=== PATIENT | male | born 1940 | race Asian ===

== ENCOUNTER 2017-12-08 09:41 | Day surgery (SDC) | payer MEDICARE ==
[2017-12-07 10:47] LABS: BASOPHILS % (AUTO) 0.4 % (0-1); EOSINOPHILS # (AUTO) 0.2 X10'3 (0-0.9); EOSINOPHILS % (AUTO) 2.7 % (0-6); HEMATOCRIT 42.6 % (42.0-52.0); HEMOGLOBIN 14.9 g/dl (14.0-17.9); LYMPHOCYTES # (AUTO) 1.2 X10'3 (1.1-4.8); LYMPHOCYTES % (AUTO) 14.6 % (21-51); MEAN CORPUSCULAR HEMOGLOBIN 33.4 PG (27.0-31.0); MEAN CORPUSCULAR VOLUME 95.3 FL (78-98); MEAN PLATELET VOLUME 6.7 FL (7.4-10.4); MONOCYTES # (AUTO) 0.4 X10'3 (0-0.9); MONOCYTES % (AUTO) 5.3 % (2-12); NEUTROPHILS # (AUTO) 6.3 X10'3 (1.8-7.7); PLATELET COUNT 178 X10'3 (140-440); RED BLOOD COUNT 4.47 X10'6 (4.70-6.10); RED CELL DISTRIBUTION WIDTH 14.1 % (11.5-14.5); WHITE BLOOD COUNT 8.1 X10'3 (4.5-11.0)
[2017-12-07 10:58] LABS: PARTIAL THROMBOPLASTIN TIME 24 SECONDS (22-32); PROTHROMBIN TIME 10.3 SECONDS (9.0-12.0)
[2017-12-07 10:59] LABS: GLUCOSE 120 MG/DL (70-104); POTASSIUM 4.1 MMOL/L (3.5-5.1); SODIUM 143 MMOL/L (135-145)
[2017-12-07 11:00] LABS: ALBUMIN 3.9 G/DL (3.4-5.0); ANION GAP 10 (8-16); BLOOD UREA NITROGEN 10 MG/DL (7-18); BUN/CREATININE RATIO 8.1 (5.4-32.0); CALCIUM 8.1 MG/DL (8.5-10.1); CHLORIDE 106 MMOL/L (99-107); CREATININE 1.24 MG/DL (0.60-1.10); TOTAL CARBON DIOXIDE 27.4 MMOL/L (24-32); eGFR 57 ML/MIN
[2017-12-08] VITALS (21 sets, daily range): BP systolic 121–178; BP diastolic 53–84
[~2017-12-08] VITALS: Ht 165.1 cm; Wt 74.5 kg
[~2017-12-08 09:41] MED LIST: ALLO300T8 PO; ASPI-1053 PO; ATOR10TA87 PO; CALC-793 PO; CLOP75TA35 PO; GLUC-221; INDO50CA PO; LISI10TA4 PO; METO50TA17 PO; OMEG1CAP2
[2017-12-08] MEDS ORDERED: sod bicarbonate 150mEq in D5W 1,150 ML IV ONE (10:00)
[2017-12-08] MEDS ORDERED: diphenhydrAMINE 25mg capsule PO PRN (10:05)
[2017-12-08] MEDS ORDERED: LORazepam 0.5 MG tablet PO PRN (10:05)
[2017-12-08] MEDS ORDERED: acetylcysteine 200 MG/ml 4ml vial PO PRN (10:05)
[2017-12-08] MEDS ORDERED: CLOP75TA35 PO (11:05)
[2017-12-08] MEDS ORDERED: vitamin D PO (11:09)
[2017-12-08] MEDS ORDERED: OMEG1CAP13 PO (11:11)
[2017-12-08] MEDS: normal saline 1000ml 1,000 ML IV SCH ×2 (14:30→23:44)
[2017-12-08] MEDS ORDERED: LIDOcaine 1% 30ml preserv. free vial ONE (14:50)
[2017-12-08] MEDS ORDERED: nitroGLYCERIN-Tridil 50MG/D5W 250 ML IV ONE (14:50)
[2017-12-08] MEDS ORDERED: iohexol 350MG/ML 100ml bottle IV ONE ×3 (14:50→16:38)
[2017-12-08] MEDS ORDERED: iohexol 350 MG/ML 50ML vial IV ONE (14:50)
[2017-12-08] MEDS ORDERED: heparin 1,000unit/ml 10ml vial 10 ML ONE (14:50)
[2017-12-08] MEDS ORDERED: midazolam 2 mg/2 ml injection ONE (15:12)
[2017-12-08] MEDS ORDERED: fentaNYL/PF 50MCG/1 ML 2ML syringe ONE (15:12)
[2017-12-08] MEDS ORDERED: tirofiban 5mg in NS 100mL 100 ML IV ONE (16:54)
[2017-12-08] MEDS ORDERED: clopidogrel 300mg tablet ONE (17:09)
[2017-12-08] MEDS ORDERED: tirofiban 5mg in NS 100mL 100 ML IV SCH (17:50)
[2017-12-08] MEDS ORDERED: cyclobenzaprine 10mg tablet PO PRN (18:00)
[2017-12-08] MEDS ORDERED: HYDROcodone/acetaminophen 10/325mg tab PO PRN ×2 (18:00)
[2017-12-08] MEDS ORDERED: OXAZEpam 15mg capsule PO PRN (18:00)
[2017-12-08] MEDS ORDERED: proCHLORperazine 10 MG/2 ml inj IV PRN (18:00)
[2017-12-08] MEDS ORDERED: aspirin 81mg tab.chew PO ONE (18:00)
[2017-12-08] MEDS ORDERED: acetaminophen 325mg tablet PO PRN (18:00)
[2017-12-08] MEDS ORDERED: magnesium hydroxide 30ml (MOM) UD suspension PO SCH (21:00)
[2017-12-08] MEDS: metoprolol tartrate 25mg tablet PO SCH (23:40)
[2017-12-08] MEDS: lisinopril 10 MG tablet PO SCH (23:41)
[2017-12-08] MEDS: docusate sod 100mg capsule PO SCH (23:42)
[2017-12-09] VITALS (7 sets, daily range): BP systolic 115–140; BP diastolic 53–77
[2017-12-09] MEDS: normal saline 1000ml 1,000 ML IV SCH (02:54)
[2017-12-09 05:43] LABS: BASOPHILS % (AUTO) 0.1 % (0-1); EOSINOPHILS # (AUTO) 0.1 X10'3 (0-0.9); EOSINOPHILS % (AUTO) 0.8 % (0-6); HEMATOCRIT 37.1 % (42.0-52.0); HEMOGLOBIN 12.9 g/dl (14.0-17.9); LYMPHOCYTES # (AUTO) 0.9 X10'3 (1.1-4.8); LYMPHOCYTES % (AUTO) 8.1 % (21-51); MEAN CORPUSCULAR HEMOGLOBIN 32.7 PG (27.0-31.0); MEAN CORPUSCULAR HGB CONC 34.8 % (33.0-36.5); MEAN CORPUSCULAR VOLUME 93.9 FL (78-98); MEAN PLATELET VOLUME 7.1 FL (7.4-10.4); MONOCYTES # (AUTO) 0.6 X10'3 (0-0.9); MONOCYTES % (AUTO) 5.3 % (2-12); NEUTROPHILS # (AUTO) 9.6 X10'3 (1.8-7.7); NEUTROPHILS % (AUTO) 85.7 % (42-75); PLATELET COUNT 145 X10'3 (140-440); RED BLOOD COUNT 3.95 X10'6 (4.70-6.10); RED CELL DISTRIBUTION WIDTH 13.8 % (11.5-14.5); WHITE BLOOD COUNT 11.2 X10'3 (4.5-11.0)
[2017-12-09 05:52] LABS: ALBUMIN 3.2 G/DL (3.4-5.0); ANION GAP 7 (8-16); BLOOD UREA NITROGEN 11 MG/DL (7-18); BUN/CREATININE RATIO 9.9 (5.4-32.0); CALCIUM 8.2 MG/DL (8.5-10.1); CHLORIDE 105 MMOL/L (99-107); CREATININE 1.11 MG/DL (0.60-1.10); GLUCOSE 120 MG/DL (70-104); SODIUM 142 MMOL/L (135-145); TOTAL CARBON DIOXIDE 30.2 MMOL/L (24-32); eGFR 64 ML/MIN
[2017-12-09] MEDS ORDERED: clopidogrel 75mg tablet PO SCH (08:00)
[2017-12-09] MEDS ORDERED: atorvastatin 20mg tablet PO SCH (08:00)
[2017-12-09] MEDS ORDERED: vitamin D (cholecalciferol) 1,000 unit tablet PO SCH (08:00)
[2017-12-09] MEDS ORDERED: ATOR40TA PO (08:08)
[2017-12-09] MEDS ORDERED: ASPI-1 PO (08:08)
[2017-12-09] MEDS: lisinopril 10 MG tablet PO SCH (08:26)
[2017-12-09] MEDS: metoprolol tartrate 25mg tablet PO SCH (08:26)
[2017-12-09] MEDS: docusate sod 100mg capsule PO SCH (08:27)
[2017-12-09] MEDS ORDERED: aspirin 325mg tablet PO SCH (08:30)
[2017-12-09] MEDS ORDERED: allopurinol 300 MG tablet PO SCH (08:30)
[2017-12-09] MEDS ORDERED: [UNRECOGNIZED DRUG - REMARK] PO NR (10:00)
== END 2017-12-09 12:09 | disposition home or self-care (01) ==
LOC: SSTAY O 09:41 → PCU 3S 20:05 → SSTAY O 12-09 12:09
PROVIDERS: ATTEND Internal Medicine Cardiovascular Disease
DX: I25.119 Atherosclerotic heart disease of native coronary artery with unspecified angina pectoris (principal); I10 Essential (primary) hypertension; E78.5 Hyperlipidemia, unspecified; J45.909 Unspecified asthma, uncomplicated; M19.90 Unspecified osteoarthritis, unspecified site; G47.33 Obstructive sleep apnea (adult) (pediatric); E66.9 Obesity, unspecified; Z90.49 Acquired absence of other specified parts of digestive tract; Z79.01 Long term (current) use of anticoagulants; Z79.82 Long term (current) use of aspirin; Z95.5 Presence of coronary angioplasty implant and graft; Z86.74 Personal history of sudden cardiac arrest; Z87.891 Personal history of nicotine dependence; Z90.89 Acquired absence of other organs; Z68.27 Body mass index [BMI] 27.0-27.9, adult; Z98.890 Other specified postprocedural states; Z79.899 Other long term (current) drug therapy
CPT/HCPCS: 36415; 80048; 85025; 85347; 85610; 85730; 93005; 93458; 99152; 99153; A6257; A6449; C1725; C1760; C1769; C1874; C1894; C9600; J1644; J2250; J3010; J3246; J3490; J7030; Q0163; Q9967; A4620

== ENCOUNTER 2019-08-02 09:41 | Day surgery (SDC) | payer MEDICARE ==
[2019-08-01 12:20] LABS: ALBUMIN 4.3 G/DL (3.4-5.0); ANION GAP 7 (8-16); BLOOD UREA NITROGEN 18 MG/DL (7-18); BUN/CREATININE RATIO 14.9 (5.4-32.0); CHLORIDE 104 MMOL/L (99-107); CREATININE 1.21 MG/DL (0.60-1.10); GLUCOSE 189 MG/DL (70-104); POTASSIUM 4.3 MMOL/L (3.5-5.1); SODIUM 142 MMOL/L (135-145); TOTAL CARBON DIOXIDE 31.4 MMOL/L (24-32); eGFR 58 ML/MIN
[2019-08-01 12:24] LABS: PARTIAL THROMBOPLASTIN TIME 26 SECONDS (22-32)
[2019-08-01 12:28] LABS: BASOPHILS % (AUTO) 0.4 % (0-1); EOSINOPHILS # (AUTO) 0.1 X10'3 (0-0.9); EOSINOPHILS % (AUTO) 1.2 % (0-6); HEMATOCRIT 43.4 % (42.0-52.0); HEMOGLOBIN 15.3 g/dl (14.0-17.9); LYMPHOCYTES % (AUTO) 18.2 % (21-51); MEAN CORPUSCULAR HEMOGLOBIN 32.4 PG (27.0-31.0); MEAN CORPUSCULAR HGB CONC 35.1 g/dL (33.0-36.5); MEAN CORPUSCULAR VOLUME 92.2 FL (78-98); MEAN PLATELET VOLUME 7.3 FL (7.4-10.4); MONOCYTES # (AUTO) 0.4 X10'3 (0-0.9); MONOCYTES % (AUTO) 6.8 % (2-12); NEUTROPHILS % (AUTO) 73.4 % (42-75); PLATELET COUNT 162 X10'3 (140-440); RED BLOOD COUNT 4.71 X10'6 (4.70-6.10); RED CELL DISTRIBUTION WIDTH 14.3 % (11.5-14.5); WHITE BLOOD COUNT 5.5 X10'3 (4.5-11.0)
[2019-08-02] VITALS (13 sets, daily range): BP systolic 125–154; BP diastolic 62–95
[~2019-08-02] VITALS: Ht 165.1 cm; Wt 75.6 kg
[~2019-08-02 09:41] MED LIST changes: +ASPI-1 PO; -ASPI-1053 PO; -ATOR10TA87 PO; +ATOR40TA PO; -CALC-793 PO; -INDO50CA PO; +vitamin D PO
[2019-08-02] MEDS ORDERED: diphenhydrAMINE 25mg capsule PO PRN (09:55)
[2019-08-02] MEDS ORDERED: normal saline 1,000 ML IV SCH (09:55)
[2019-08-02] MEDS ORDERED: LORazepam 0.5 MG tablet PO PRN (09:55)
[2019-08-02] MEDS ORDERED: ASPI-974 PO (10:07)
[2019-08-02] MEDS ORDERED: ATOR40TA PO (10:07)
[2019-08-02] MEDS ORDERED: LIDOcaine/PRILOcaine 5gm cream TP ONE (10:20)
[2019-08-02] MEDS ORDERED: midazolam 2 mg/2 ml injection ONE (12:58)
[2019-08-02] MEDS ORDERED: fentaNYL/PF 50MCG/1 ML 2ML syringe ONE (12:58)
[2019-08-02] MEDS ORDERED: nitroGLYCERIN-Tridil 50MG/D5W 250 ML IV ONE (12:58)
[2019-08-02] MEDS ORDERED: heparin 1,000unit/ml 10ml vial 10 ML ONE (12:59)
[2019-08-02] MEDS ORDERED: iohexol 350MG/ML 100ml bottle IV ONE (12:59)
[2019-08-02] MEDS ORDERED: iohexol 350 MG/ML 50ML vial IV ONE (12:59)
[2019-08-02] MEDS ORDERED: LIDOcaine 1% (10mg/ml)w/preservative injection 20ml MDV ONE (12:59)
[2019-08-02] MEDS ORDERED: verapamil 2.5 mg/ml inj IV ONE (13:05)
== END 2019-08-02 19:00 | disposition home or self-care (01) ==
LOC: SSTAY O 09:41
PROVIDERS: ATTEND Internal Medicine Cardiovascular Disease
DX: R94.39 Abnormal result of other cardiovascular function study (principal); I25.10 Atherosclerotic heart disease of native coronary artery without angina pectoris; I10 Essential (primary) hypertension; E78.5 Hyperlipidemia, unspecified; G47.33 Obstructive sleep apnea (adult) (pediatric); Z79.899 Other long term (current) drug therapy; Z79.82 Long term (current) use of aspirin; Z79.01 Long term (current) use of anticoagulants; Z98.890 Other specified postprocedural states; Z87.891 Personal history of nicotine dependence; Z95.5 Presence of coronary angioplasty implant and graft
CPT/HCPCS: 36415; 80048; 85025; 85610; 85730; 93005; 93458; 99152; 99153; C1769; C1894; J1644; J2001; J2250; J3010; J7030; Q0163; Q9967; A4620; A5120; J3490

== ENCOUNTER 2022-07-03 11:49 | Inpatient (IN) | payer BC, MEDICARE ==
[~2022-07-03] VITALS: Ht 165.1 cm; Wt 70.0 kg
[~2022-07-03 11:49] MED LIST changes: -ASPI-1 PO; +ASPI-974 PO; +CLOP75TA34 PO; -CLOP75TA35 PO; -GLUC-221; +LISI10TA27 PO; -LISI10TA4 PO
[2022-07-03] MEDS ORDERED: diltiazem 5mg/ml 5ml inj. IV ONE (12:20)
[2022-07-03] MEDS ORDERED: normal saline 1000ML IV soln IVB ONE (12:20)
[2022-07-03 12:42] LABS: BASOPHILS % (AUTO) 0.1 % (0-1); EOSINOPHILS % (AUTO) 0 % (0-6); HEMATOCRIT 40.3 % (42.0-52.0); HEMOGLOBIN 13.4 g/dl (14.0-17.9); LYMPHOCYTES # (AUTO) 0.3 X10'3 (1.1-4.8); LYMPHOCYTES % (AUTO) 2.6 % (21-51); MEAN CORPUSCULAR HEMOGLOBIN 31.9 PG (27.0-31.0); MEAN CORPUSCULAR HGB CONC 33.3 g/dL (33.0-36.5); MEAN CORPUSCULAR VOLUME 95.9 FL (78-98); MEAN PLATELET VOLUME 7.3 FL (7.4-10.4); MONOCYTES # (AUTO) 1.3 X10'3 (0-0.9); MONOCYTES % (AUTO) 10.9 % (2-12); NEUTROPHILS # (AUTO) 10.2 X10'3 (1.8-7.7); NEUTROPHILS % (AUTO) 86.4 % (42-75); PLATELET COUNT 138 X10'3 (140-440); RED BLOOD COUNT 4.21 X10'6 (4.70-6.10); WHITE BLOOD COUNT 11.7 X10'3 (4.5-11.0)
[2022-07-03 12:54] LABS: CLARITY,URINE CLOUDY (Clear); COLOR,URINE BROWN (Yellow); GLUCOSE, URINE NEGATIVE (Neg); KETONES,URINE TRACE mg/dl (Neg); LEUKOCYTE ESTERASE ,URINE NEGATIVE (Neg); NITRITES, URINE POSITIVE (Neg); OCCULT BLOOD,URINE LARGE (Neg); PH,URINE 5.5 (4.8-8.0); PROTEIN,URINE >=300 mg/dl (Neg)
[2022-07-03 12:59] LABS: UA COLLECTION TYPE FOLEY CATH
[2022-07-03 13:00] LABS: WBC,URINE 30-50 /HPF (0-4)
[2022-07-03 13:00] LABS: ALANINE AMINOTRANSFERASE 58 U/L (12-78); ALBUMIN 3.5 G/DL (3.4-5.0); ALBUMIN/GLOBULIN RATIO 1.1 (1.1-1.5); ALKALINE PHOSPHATASE 61 IU/L (46-116); ANION GAP 11 (8-16); ASPARTATE AMINO TRANSFERASE 180 U/L (10-37); BILIRUBIN,TOTAL 1.9 MG/DL (0.1-1.0); BLOOD UREA NITROGEN 23 MG/DL (7-18); BUN/CREATININE RATIO 10.6 (5.4-32.0); CALCIUM 7.9 MG/DL (8.5-10.1); CHLORIDE 102 MMOL/L (99-107); CREATININE 2.18 MG/DL (0.60-1.10); GLUCOSE 142 MG/DL (70-104); MAGNESIUM 1.9 MG/DL (1.5-2.4); POTASSIUM 4.8 MMOL/L (3.5-5.1); SODIUM 136 MMOL/L (135-145); TOTAL PROTEIN 6.8 G/DL (6.4-8.2); eGFR 29 ML/MIN
[2022-07-03 13:01] LABS: BACTERIA,URINE 3+ /HPF (Neg); MUCUS STRANDS FEW /LPF (Neg); SQUAMOUS EPITHELIAL CELL,UR NONE SEEN /LPF (FEW)
[2022-07-03] MEDS ORDERED: diltiazem-NS 100mg/100ml 100 ML IV PRN (13:05)
[2022-07-03] MEDS ORDERED: aspirin 81mg tab.chew PO ONE (13:20)
[2022-07-03] MEDS ORDERED: nitroGLYCERIN 0.4mg/hour patch TD ONE (13:20)
[2022-07-03] MEDS ORDERED: azithromycin/NS 500mg/250ml 250 ML IV ONE (13:20)
[2022-07-03] MEDS ORDERED: CefTRIAXone/D5W-Rocephin 1gm 50 ML IV ONE (13:20)
--- NOTE | 2022-07-03 13:45 | NUR ---
MD Ramachandran at bedside. Verbal by MD Ramachandran to increase diltz drip up to 10mg/hr
[2022-07-03] MEDS ORDERED: acetaminophen 325mg tablet PO ONE ×2 (13:55→14:20)
[2022-07-03] MEDS ORDERED: amiodarone 150mg/dext, iso-os 100 ML IV ONE (14:15)
[2022-07-03] MEDS ORDERED: normal saline 1000ml 1,000 ML IV ONE (14:20)
[2022-07-03] MEDS ORDERED: heparin 10,000 units/1 ML INJ IV ONE ×2 (14:20→14:25)
[2022-07-03] MEDS ORDERED: metoprolol tartrate 1mg/ml inj IV SCH (14:30)
--- NOTE | 2022-07-03 14:40 | NUR ---
Per BAKERY ASSISTANT Shanique, hold lopressor, and only give bolus of amio
[2022-07-03] MEDS: amiodarone/D5 360MG/200ML BAG 200 ML IV SCH ×2 (15:03→20:19)
--- NOTE | 2022-07-03 15:24 | NUR ---
critical result troponin [id number] RN BJ notified
[2022-07-03] MEDS ORDERED: oseltamivir phos 75mg capsule PO SCH (15:30)
--- NOTE | 2022-07-03 15:30 | NUR ---
Per KEVIN lin
[2022-07-03] MEDS: heparin 25,000 UNIT/250ml bag 250 ML IV PRN (15:36)
[2022-07-03] MEDS ORDERED: digoxin 250mcg/ml 2ml ampule IV ONE ×2 (15:55→22:00)
[2022-07-03] MEDS ORDERED: acetaminophen 325mg tablet PO PRN ×2 (18:05)
[2022-07-03] MEDS ORDERED: potassium Cl 40MEQ/1/2NS 520ml 520 ML IV PRN (18:05)
[2022-07-03] MEDS ORDERED: HYDROcodone/acetaminophen 5mg/325mg tablet PO PRN (18:05)
[2022-07-03] MEDS: normal saline 1000ml 1,000 ML IV SCH (18:05)
[2022-07-03] MEDS ORDERED: acetaminophen 650mg rectal suppository RC PRN (18:05)
[2022-07-03] MEDS ORDERED: magnesium hydroxide 30ml (MOM) UD suspension PO PRN (18:05)
[2022-07-03] MEDS ORDERED: ondansetron/PF 4mg/2ml inj IV PRN (18:05)
[2022-07-03] MEDS ORDERED: bisacodyl 10mg suppository rectal RC PRN (18:05)
[2022-07-03] MEDS ORDERED: magnesium 4gm in 100ml NS 100 ML IV PRN (18:05)
[2022-07-03] MEDS ORDERED: potassium Cl 20 mEq SR tablet PO PRN ×2 (18:05)
[2022-07-03] MEDS ORDERED: morphine 2 MG/ML inj. syringe IV PRN ×2 (18:05)
[2022-07-03] MEDS ORDERED: mag hydrox/Alum hydrox/simeth 30ml oral suspension PO PRN (18:05)
[2022-07-03] MEDS ORDERED: HYDROcodone/acetaminophen 10/325mg tab PO PRN (18:05)
[2022-07-03] MEDS ORDERED: diphenhydrAMINE 25mg capsule PO PRN (18:05)
[2022-07-03] MEDS ORDERED: magnesium Cl slow-release 64mg tablet PO PRN (18:05)
[2022-07-03] MEDS ORDERED: PERFLUTREN PROTEIN-A MICROSPHR (Optison) 0.22 MG/ML 3ML VIAL IV ONE (18:05)
[2022-07-03 18:39] LABS: HEMOGLOBIN A1C 5.8 % (4.5-6.2)
[2022-07-03] MEDS: ipratropium/albuterol 3ml nebule NEB SCH (19:53)
[2022-07-03] MEDS: K and/or MAG REPLACEMENT MC SCH (20:00)
[2022-07-03] MEDS: docusate sod 100mg capsule PO SCH (20:00)
--- NOTE | 2022-07-03 21:01 | NUR ---
optison not administered in ER.
[2022-07-03 22:17] LABS: CREATINE KINASE 9321 U/L (39-308)
[2022-07-04] VITALS (10 sets, daily range): BP systolic 90–130; BP diastolic 55–83
[2022-07-04] MEDS: oseltamivir phos 75mg capsule PO SCH ×3 (01:03→20:26)
[2022-07-04] MEDS: ipratropium/albuterol 3ml nebule NEB PRN (01:15)
[2022-07-04] MEDS ORDERED: furosemide 10 MG/1 ML 10ml inj IV ONE (01:45)
[2022-07-04] MEDS ORDERED: metoprolol tartrate 1mg/ml inj IV ONE (01:45)
[2022-07-04] MEDS: amiodarone/D5 360MG/200ML BAG 200 ML IV SCH ×2 (02:23→13:55)
[2022-07-04 03:42] LABS: ABG HCO3 17.7 mmol/L (22.0-26.0); ABG OXYGEN SATURATION 96.2 % (94-97); ABG PO2 (T) 88.7 mmHg (75.0-100.0); ALLEN'S TEST POSITIVE; FCOHb 0.3 % (0.0-3.9); FMetHb 0.3 % (0.0-1.5); FO2Hb 95.6 % (94-97); PATIENT TEMPERATURE 38.1; TOTAL HEMOGLOBIN 12.9 G/dl (14.0-17.9)
[2022-07-04] MEDS: ipratropium/albuterol 3ml nebule NEB SCH ×4 (04:12→20:51)
[2022-07-04 05:34] LABS: APTT 29 SECONDS (22-32)
[2022-07-04] MEDS: heparin 10,000 units/1 ML INJ IV PRN ×2 (06:47→23:27)
--- NOTE | 2022-07-04 07:04 | NUR ---
REPORT FROM JENNIFER WELLINGTON FOR CONTINUATION OF CARE. PT IS AWAKE BIPAP IN PLACE. RESP EVEN UNLABORED. SKIN W/D/I PINK. IV HEAPRIN DOSAGE INCREASED BY JENNIFER WELLINGTON TO 1000UNITS/HR PER PROTOCAL.
--- NOTE | 2022-07-04 07:23 | NUR ---
MUNOZ IN PLACE APPROX 1500 ML URINE TAKEN FROM BAG
[2022-07-04] MEDS: K and/or MAG REPLACEMENT MC SCH ×2 (07:25→20:00)
[2022-07-04] MEDS: docusate sod 100mg capsule PO SCH ×2 (08:00→20:00)
[2022-07-04] MEDS: CefTRIAXone/D5W-Rocephin 1gm 50 ML IV SCH (08:08)
--- NOTE | 2022-07-04 09:03 | NUR ---
PT GIVEN TRAY SAT UP AND IS EATING WITH NO ISSUES. PT TAKEN OFF BIPAP. PT SPEAKING IN COMPLETE SENTENCES AND DENIES CP OR SOB.
[2022-07-04 09:34] LABS: BASOPHILS # (AUTO) 0.1 X10'3 (0-0.2); BASOPHILS % (AUTO) 1.2 % (0-1); EOSINOPHILS % (AUTO) 0.2 % (0-6); HEMATOCRIT 34.3 % (42.0-52.0); HEMOGLOBIN 11.2 g/dl (14.0-17.9); LYMPHOCYTES # (AUTO) 0.2 X10'3 (1.1-4.8); LYMPHOCYTES % (AUTO) 3.7 % (21-51); MEAN CORPUSCULAR HEMOGLOBIN 32.4 PG (27.0-31.0); MEAN CORPUSCULAR HGB CONC 32.8 g/dL (33.0-36.5); MEAN CORPUSCULAR VOLUME 98.9 FL (78-98); MEAN PLATELET VOLUME 7.9 FL (7.4-10.4); MONOCYTES # (AUTO) 0.7 X10'3 (0-0.9); MONOCYTES % (AUTO) 11.3 % (2-12); NEUTROPHILS # (AUTO) 5.2 X10'3 (1.8-7.7); NEUTROPHILS % (AUTO) 83.6 % (42-75); PLATELET COUNT 120 X10'3 (140-440); RED BLOOD COUNT 3.47 X10'6 (4.70-6.10); RED CELL DISTRIBUTION WIDTH 14.2 % (11.5-14.5); WHITE BLOOD COUNT 6.2 X10'3 (4.5-11.0)
[2022-07-04 10:37] LABS: ALANINE AMINOTRANSFERASE 106 U/L (12-78); ALBUMIN/GLOBULIN RATIO 0.9 (1.1-1.5); ALKALINE PHOSPHATASE 45 IU/L (46-116); ANION GAP 11 (8-16); ASPARTATE AMINO TRANSFERASE 302 U/L (10-37); BILIRUBIN,TOTAL 1.1 MG/DL (0.1-1.0); BLOOD UREA NITROGEN 25 MG/DL (7-18); BUN/CREATININE RATIO 14.6 (5.4-32.0); CALCIUM 7.4 MG/DL (8.5-10.1); CHLORIDE 103 MMOL/L (99-107); CREATININE 1.71 MG/DL (0.60-1.10); GLUCOSE 186 MG/DL (70-104); POTASSIUM 3.8 MMOL/L (3.5-5.1); SODIUM 135 MMOL/L (135-145); TOTAL CARBON DIOXIDE 21.1 MMOL/L (24-32); TOTAL PROTEIN 6.3 G/DL (6.4-8.2); eGFR 39 ML/MIN
[2022-07-04 11:04] LABS: CHOL/HDL RATIO 2.7 (0.00-4.99); CHOLESTEROL 95 MG/DL (0-200); HDL CHOLESTEROL 35 MG/DL (35-60); LDL CHOLESTEROL 48 MG/DL (50-100); MAGNESIUM 1.7 MG/DL (1.5-2.4); PHOSPHORUS 2.7 MG/DL (2.3-4.5); TRIGLYCERIDES 75 MG/DL (20-135)
[2022-07-04] MEDS ORDERED: digoxin 250mcg/ml 2ml ampule IV ONE (11:20)
[2022-07-04] MEDS ORDERED: amiodarone 150mg/dext, iso-os 100 ML IV ONE (11:20)
[2022-07-04] MEDS: normal saline 1000ml 1,000 ML IV SCH ×2 (11:59→20:45)
[2022-07-04] MEDS: atorvastatin 20mg tablet PO SCH (12:03)
[2022-07-04] MEDS: metoprolol tartrate 25mg tablet PO SCH ×2 (12:03→20:24)
[2022-07-04] MEDS: clopidogrel 75mg tablet PO SCH (12:03)
[2022-07-04 13:28] LABS: APTT 96 SECONDS (22-32)
[2022-07-04] MEDS: amiodarone 200mg tablet PO SCH ×2 (15:13→20:22)
[2022-07-04] MEDS ORDERED: METO-395 PO (17:58)
[2022-07-04] MEDS ORDERED: CHOL500050 PO (18:00)
[2022-07-04] MEDS ORDERED: aspirin 81mg, enteric-coated 1 TAB TABLET.DR PO ONE (18:15)
--- NOTE | 2022-07-04 18:16 | NUR ---
Problems reprioritized. Patient report given, questions answered & plan of care reviewed with Avery Smalls.Bedside report completed. Pt talking on phone to daughter.dinner infront of him. Pt states he has little appetite right now. Call light in reach Addendum: 07/04/22 at 1818 by Miriam Turcios RN Amended: Links added.
[2022-07-04] MEDS: heparin 25,000 UNIT/250ml bag 250 ML IV PRN (19:14)
[2022-07-04] MEDS: lisinopril 10 MG tablet PO SCH (20:26)
[2022-07-04] MEDS ORDERED: LORazepam 2 mg/ml vial IV PRN (22:25)
[2022-07-04] MEDS ORDERED: thiamine 100mg/ml 2ml inj. IM ONE (22:25)
[2022-07-04] MEDS ORDERED: LORazepam 1 MG tablet PO PRN (22:25)
[2022-07-05] MEDS: ipratropium/albuterol 3ml nebule NEB SCH ×4 (02:57→20:08)
[2022-07-05 06:00] VITALS: BP 113/81
[2022-07-05 06:07] LABS: BASOPHILS % (AUTO) 0.1 % (0-1); EOSINOPHILS % (AUTO) 0.3 % (0-6); HEMATOCRIT 34.4 % (42.0-52.0); HEMOGLOBIN 11.7 g/dl (14.0-17.9); LYMPHOCYTES # (AUTO) 0.6 X10'3 (1.1-4.8); LYMPHOCYTES % (AUTO) 11.6 % (21-51); MEAN CORPUSCULAR HEMOGLOBIN 33.1 PG (27.0-31.0); MEAN CORPUSCULAR HGB CONC 33.9 g/dL (33.0-36.5); MEAN CORPUSCULAR VOLUME 97.7 FL (78-98); MEAN PLATELET VOLUME 7.7 FL (7.4-10.4); MONOCYTES # (AUTO) 0.7 X10'3 (0-0.9); MONOCYTES % (AUTO) 13.3 % (2-12); NEUTROPHILS # (AUTO) 3.7 X10'3 (1.8-7.7); NEUTROPHILS % (AUTO) 74.7 % (42-75); PLATELET COUNT 128 X10'3 (140-440); RED BLOOD COUNT 3.52 X10'6 (4.70-6.10); RED CELL DISTRIBUTION WIDTH 14.5 % (11.5-14.5); WHITE BLOOD COUNT 4.9 X10'3 (4.5-11.0)
--- NOTE | 2022-07-05 06:15 | NUR ---
Patient in room PCU 3010. I have received report from JENNIFER BALDERAS and had the opportunity to ask questions and assume patient care.
--- NOTE | 2022-07-05 07:00 | NUR ---
Problems reprioritized. Patient report given, questions answered & plan of care reviewed with GUS MARK.
[2022-07-05 07:03] LABS: ALANINE AMINOTRANSFERASE 102 U/L (12-78); ALBUMIN 2.8 G/DL (3.4-5.0); ALBUMIN/GLOBULIN RATIO 0.9 (1.1-1.5); ALKALINE PHOSPHATASE 40 IU/L (46-116); ANION GAP 7 (8-16); ASPARTATE AMINO TRANSFERASE 303 U/L (10-37); BILIRUBIN,TOTAL 0.7 MG/DL (0.1-1.0); BLOOD UREA NITROGEN 19 MG/DL (7-18); BUN/CREATININE RATIO 13.8 (5.4-32.0); CALCIUM 7.5 MG/DL (8.5-10.1); CHLORIDE 107 MMOL/L (99-107); CREATININE 1.38 MG/DL (0.60-1.10); GLUCOSE 115 MG/DL (70-104); MAGNESIUM 1.9 MG/DL (1.5-2.4); PHOSPHORUS 2.7 MG/DL (2.3-4.5); POTASSIUM 3.9 MMOL/L (3.5-5.1); SODIUM 138 MMOL/L (135-145); TOTAL CARBON DIOXIDE 24.4 MMOL/L (24-32); TOTAL PROTEIN 5.8 G/DL (6.4-8.2); eGFR 49 ML/MIN
[2022-07-05] MEDS: docusate sod 100mg capsule PO SCH ×2 (08:00→20:00)
[2022-07-05] MEDS: K and/or MAG REPLACEMENT MC SCH ×2 (08:00→20:00)
[2022-07-05] MEDS ORDERED: clopidogrel 75mg tablet PO SCH (08:00)
[2022-07-05] MEDS ORDERED: atorvastatin 20mg tablet PO SCH (08:00)
[2022-07-05] MEDS: cholecalciferol (vitamin D3) 1,000 unit (25mcg) tablet PO SCH (08:13)
[2022-07-05] MEDS: oseltamivir phos 75mg capsule PO SCH ×2 (08:13→20:08)
[2022-07-05] MEDS: atorvastatin 20mg tablet PO SCH (08:13)
[2022-07-05] MEDS: allopurinol 300 MG tablet PO SCH (08:13)
[2022-07-05] MEDS: amiodarone 200mg tablet PO SCH ×2 (08:13→20:08)
[2022-07-05] MEDS: lisinopril 10 MG tablet PO SCH (08:14)
[2022-07-05] MEDS: aspirin 81mg, enteric-coated 1 TAB TABLET.DR PO SCH (08:14)
[2022-07-05] MEDS: multivitamins, therapeutics tablet PO SCH (08:14)
[2022-07-05] MEDS: metoprolol succinate 25mg (24-HOUR) SR. Tablet PO SCH (08:14)
[2022-07-05] MEDS: clopidogrel 75mg tablet PO SCH (08:15)
[2022-07-05] MEDS: metoprolol tartrate 25mg tablet PO SCH (08:28)
[2022-07-05] MEDS: CefTRIAXone/D5W-Rocephin 1gm 50 ML IV SCH (08:40)
[2022-07-05 11:00] VITALS: BP 120/74
[2022-07-05] MEDS ORDERED: metoprolol tartrate 25mg tablet PO ONE (12:15)
--- NOTE | 2022-07-05 14:29 | NUR ---
Initial: Pt admit s/p multiple falls w/ confusion DX sepsis, possible UTI, lactic acidosis, NSTEMI, influenza, alcoholism, HTN, CAD, and acute renal failure per EMR. Receiving thiamine, folic acid, MVI for etoh per EMR. PO 50% first heart healthy meal last night pending further PO documentation today. LBM 07/05. Will monitor for further PO trends and nutrition intervention needs this admit. Rec: 1. continue heart healthy diet 2. monitor further PO trends for ONS needs 3. routine thiamine, folic acid, MVI for etoh hx 4. bowel care per rx 5. scaled wt this admit; subsequent weekly wts Addendum: 07/05/22 at [address] Amended: Links added.
[2022-07-05] MEDS ORDERED: ondansetron 4mg rapidly disintigrating tab PO PRN (16:55)
[2022-07-05 17:03] VITALS: BP 116/78
[2022-07-05] MEDS: normal saline 1000ml 1,000 ML IV SCH ×2 (17:41→23:25)
[2022-07-05 18:00] VITALS: BP 116/64
--- NOTE | 2022-07-05 18:23 | NUR ---
Problems reprioritized. Patient report given, questions answered & plan of care reviewed with Avery RODRIGUEZ.
[2022-07-05] MEDS: metoprolol tartrate 50mg tablet PO SCH (20:12)
[2022-07-06 02:00] VITALS: BP 114/70
[2022-07-06] MEDS: ipratropium/albuterol 3ml nebule NEB SCH ×3 (03:19→15:19)
[2022-07-06] MEDS: heparin 25,000 UNIT/250ml bag 250 ML IV PRN (03:42)
[2022-07-06 07:00] VITALS: BP 149/61
--- NOTE | 2022-07-06 07:21 | NUR ---
Patient in room PCU 3010. I have received report from JENNIFER BALDERAS and had the opportunity to ask questions and assume patient care.
[2022-07-06] MEDS: docusate sod 100mg capsule PO SCH (08:00)
[2022-07-06] MEDS ORDERED: lisinopril 10 MG tablet PO SCH (08:00)
[2022-07-06] MEDS: K and/or MAG REPLACEMENT MC SCH (08:00)
[2022-07-06] MEDS: CefTRIAXone/D5W-Rocephin 1gm 50 ML IV SCH (08:15)
[2022-07-06] MEDS: atorvastatin 20mg tablet PO SCH (08:21)
[2022-07-06] MEDS: allopurinol 300 MG tablet PO SCH (08:22)
[2022-07-06] MEDS: amiodarone 200mg tablet PO SCH (08:24)
[2022-07-06] MEDS: metoprolol tartrate 50mg tablet PO SCH (08:24)
[2022-07-06] MEDS: clopidogrel 75mg tablet PO SCH (08:25)
[2022-07-06] MEDS: oseltamivir phos 75mg capsule PO SCH (08:25)
[2022-07-06] MEDS: aspirin 81mg, enteric-coated 1 TAB TABLET.DR PO SCH (08:25)
[2022-07-06] MEDS: cholecalciferol (vitamin D3) 1,000 unit (25mcg) tablet PO SCH (08:27)
[2022-07-06] MEDS: metoprolol succinate 25mg (24-HOUR) SR. Tablet PO SCH (08:28)
[2022-07-06] MEDS: multivitamins, therapeutics tablet PO SCH (08:29)
[2022-07-06 08:47] LABS: BASOPHILS % (AUTO) 0.2 % (0-1); EOSINOPHILS % (AUTO) 0.7 % (0-6); HEMATOCRIT 30.9 % (42.0-52.0); HEMOGLOBIN 10.6 g/dl (14.0-17.9); LYMPHOCYTES # (AUTO) 0.6 X10'3 (1.1-4.8); LYMPHOCYTES % (AUTO) 15.2 % (21-51); MEAN CORPUSCULAR HEMOGLOBIN 33.2 PG (27.0-31.0); MEAN CORPUSCULAR HGB CONC 34.2 g/dL (33.0-36.5); MEAN PLATELET VOLUME 7.2 FL (7.4-10.4); MONOCYTES # (AUTO) 0.5 X10'3 (0-0.9); MONOCYTES % (AUTO) 11.1 % (2-12); NEUTROPHILS % (AUTO) 72.8 % (42-75); PLATELET COUNT 119 X10'3 (140-440); RED BLOOD COUNT 3.18 X10'6 (4.70-6.10); WHITE BLOOD COUNT 4.1 X10'3 (4.5-11.0)
[2022-07-06 09:07] LABS: ALANINE AMINOTRANSFERASE 139 U/L (12-78); ALBUMIN 2.7 G/DL (3.4-5.0); ALBUMIN/GLOBULIN RATIO 0.9 (1.1-1.5); ALKALINE PHOSPHATASE 42 IU/L (46-116); ANION GAP 12 (8-16); ASPARTATE AMINO TRANSFERASE 322 U/L (10-37); BILIRUBIN,TOTAL 0.6 MG/DL (0.1-1.0); BLOOD UREA NITROGEN 21 MG/DL (7-18); BUN/CREATININE RATIO 16.3 (5.4-32.0); CALCIUM 7.9 MG/DL (8.5-10.1); CHLORIDE 108 MMOL/L (99-107); CREATININE 1.29 MG/DL (0.60-1.10); GLUCOSE 125 MG/DL (70-104); MAGNESIUM 1.6 MG/DL (1.5-2.4); PHOSPHORUS 3.4 MG/DL (2.3-4.5); POTASSIUM 3.9 MMOL/L (3.5-5.1); SODIUM 140 MMOL/L (135-145); TOTAL CARBON DIOXIDE 19.9 MMOL/L (24-32); TOTAL PROTEIN 5.7 G/DL (6.4-8.2); eGFR 53 ML/MIN
[2022-07-06] MEDS: ipratropium/albuterol 3ml nebule NEB PRN (10:47)
[2022-07-06 11:22] VITALS: BP 114/57
[2022-07-06] MEDS ORDERED: CEFD300C3 PO (11:34)
[2022-07-06] MEDS ORDERED: APIX5TAB3 PO (11:34)
[2022-07-06] MEDS ORDERED: LACT1CAP26 PO (11:34)
[2022-07-06] MEDS ORDERED: METO50TA16 PO (11:34)
[2022-07-06] MEDS ORDERED: ALBU6.7H14 INH (11:34)
[2022-07-06] MEDS ORDERED: MULT-25 PO (11:34)
[2022-07-06] MEDS ORDERED: TAM75C PO (11:34)
[2022-07-06] MEDS ORDERED: AMIO200T67 PO (11:34)
[2022-07-06] MEDS ORDERED: FOLI0.4T6 PO (11:36)
[2022-07-06] MEDS ORDERED: THIA50TA10 PO (11:36)
--- NOTE | 2022-07-06 11:56 | NUR ---
Paged Dr Pretty Message: [phone]. Steve Preston. I see d/c orders. Pt still has protocol B f/c, can I d/c? Also, pt still on hep gtt, Cardiac PTT has been therapeutic. d/c? Pls clarify. Heather Oglesby [phone] Transaction number: [id number]
[2022-07-06] MEDS: normal saline 1000ml 1,000 ML IV SCH (12:45)
--- NOTE | 2022-07-06 16:25 | NUR ---
DISCHARGE PAPERWORK WAS REVIEWED WITH PATIENT AND FAMILY MEMBER. ANSWERED ALL QUESTIONS PRIOR TO DISCHARGE REGARDING MEDICATION ETC. PATIENT LEFT IN WHEELCHAIR TO PRIVATE VEHICLE. ALL PERSONAL BELONGINGS WERE SENT WITH PATIENT. PIV AND TELE REMOVED. PATIENT VOIDED A CONSIDERABLE AMOUNT AFTER MUNOZ CATHETER REMOVAL. NEW PRESCRIPTIONS WERE SENT TO PREFERRED OUTPATIENT PHARMACY AND GAVE PATIENT ELIQUIS COUPON.
--- NOTE | 2022-07-06 16:38 | NUR ---
Orientee documentation: I have reviewed and agree with all interventions, assessments performed and documented by JENNIFER Glover.
[2022-07-07] MEDS ORDERED: allopurinol 100mg tablet PO SCH (08:30)
[2022-07-09] MEDS ORDERED: thiamine 100mg tablet PO SCH (08:00)
[2022-07-09] MEDS ORDERED: folic acid 1mg tablet PO SCH (08:00)
== END 2022-07-06 15:25 | disposition home health service (06) | DRG 871 ==
LOC: ER 11:49 → ED HOLD 18:11 → EDBEDREQ 07-04 09:15 → PCU 3S 07-04 10:44
PROVIDERS: ADMIT Family Medicine; ATTEND Family Medicine
PROC: 5A09357 Assistance with Respiratory Ventilation, Less than 24 Consecutive Hours, Continuous Positive Airway Pressure (ICD-10-PCS; principal; 2022-07-04)
DX: A41.9 Sepsis, unspecified organism (principal); G93.41 Metabolic encephalopathy; I21.4 Non-ST elevation (NSTEMI) myocardial infarction; J10.00 Influenza due to other identified influenza virus with unspecified type of pneumonia; N17.0 Acute kidney failure with tubular necrosis; N39.0 Urinary tract infection, site not specified; I48.20 Chronic atrial fibrillation, unspecified; Z20.822 Contact with and (suspected) exposure to COVID-19; B96.20 Unspecified Escherichia coli [E. coli] as the cause of diseases classified elsewhere; R19.7 Diarrhea, unspecified; I95.9 Hypotension, unspecified; R74.01 Elevation of levels of liver transaminase levels; E78.5 Hyperlipidemia, unspecified; S09.90XA Unspecified injury of head, initial encounter; E80.6 Other disorders of bilirubin metabolism; F10.20 Alcohol dependence, uncomplicated; I10 Essential (primary) hypertension; D64.9 Anemia, unspecified; W18.39XA Other fall on same level, initial encounter; S00.83XA Contusion of other part of head, initial encounter; I25.10 Atherosclerotic heart disease of native coronary artery without angina pectoris; I48.91 Unspecified atrial fibrillation; M1A.9XX0 Chronic gout, unspecified, without tophus (tophi); R29.6 Repeated falls; Z78.9 Other specified health status; Z79.01 Long term (current) use of anticoagulants; Z79.02 Long term (current) use of antithrombotics/antiplatelets; Z79.82 Long term (current) use of aspirin; Z79.899 Other long term (current) drug therapy; Z95.5 Presence of coronary angioplasty implant and graft; Y93.89 Activity, other specified; Y92.098 Other place in other non-institutional residence as the place of occurrence of the external cause; Y99.8 Other external cause status; Z71.41 Alcohol abuse counseling and surveillance of alcoholic
CPT/HCPCS: 36415; 36600; 70450; 71045; 72125; 80053; 80061; 81001; 82550; 82803; 82948; 83036; 83605; 83735; 83880; 84100; 84145; 84443; 84484; 85018; 85025; 85610; 85730; 87040; 87077; 87088; 87186; 87502; 87503; 87635; 93306; 94640; 94660; 94760; 96361; 96365; 96367; 96375; 96376; 97116; 97161; 97530; 99285; C2617; C9803; G0378; J0282; J0456; J0696; J1160; J1644; J1940; J3411; J3490; J7030

== ENCOUNTER 2024-07-01 11:24 | Emergency (ER) | payer BC, MEDICARE ==
[~2024-07-01] VITALS: Ht 165.1 cm; Wt 78.5 kg
[~2024-07-01 11:24] MED LIST changes: +ALBU6.7H14 INH; +AMIO200T67 PO; +APIX5TAB3 PO; -ASPI-974 PO; +CHOL500050 PO; +LACT1CAP26 PO; +METO50TA16 PO; -METO50TA17 PO; +MULT-25 PO; +TAM75C PO; +THIA50TA10 PO; -vitamin D PO
[2024-07-01 11:34] VITALS: TEMP 98.6
[2024-07-01 12:12] LABS: BASOPHILS # (AUTO) 0.1 X10'3 (0-0.2); BASOPHILS % (AUTO) 0.8 % (0-1); EOSINOPHILS # (AUTO) 0.1 X10'3 (0-0.9); EOSINOPHILS % (AUTO) 1.9 % (0-6); HEMOGLOBIN 13.8 g/dl (14.0-17.9); LYMPHOCYTES # (AUTO) 1.3 X10'3 (1.1-4.8); LYMPHOCYTES % (AUTO) 16.9 % (21-51); MEAN CORPUSCULAR HEMOGLOBIN 32.1 PG (27.0-31.0); MEAN CORPUSCULAR HGB CONC 34.4 g/dL (33.0-36.5); MEAN CORPUSCULAR VOLUME 93.3 FL (78-98); MEAN PLATELET VOLUME 7.3 FL (7.4-10.4); MONOCYTES # (AUTO) 0.5 X10'3 (0-0.9); NEUTROPHILS # (AUTO) 5.7 X10'3 (1.8-7.7); NEUTROPHILS % (AUTO) 74.4 % (42-75); PLATELET COUNT 257 X10'3 (140-440); RED BLOOD COUNT 4.29 X10'6 (4.70-6.10); RED CELL DISTRIBUTION WIDTH 14.8 % (11.5-14.5); WHITE BLOOD COUNT 7.6 X10'3 (4.5-11.0)
[2024-07-01 12:26] LABS: ALANINE AMINOTRANSFERASE 65 U/L (12-78); ALBUMIN 3.8 G/DL (3.4-5.0); ALBUMIN/GLOBULIN RATIO 1.1 (1.1-1.5); ALKALINE PHOSPHATASE 103 IU/L (46-116); ANION GAP 8 (8-16); ASPARTATE AMINO TRANSFERASE 56 U/L (10-37); BILIRUBIN,TOTAL 2.8 MG/DL (0.1-1.0); BLOOD UREA NITROGEN 16 MG/DL (7-18); BUN/CREATININE RATIO 11.1 (10.0-20.0); CALCIUM 8.7 MG/DL (8.5-10.1); CHLORIDE 104 MMOL/L (99-107); CREATININE 1.44 MG/DL (0.60-1.10); GLUCOSE 175 MG/DL (70-104); SODIUM 140 MMOL/L (135-145); TOTAL CARBON DIOXIDE 28.2 MMOL/L (24-32); TOTAL PROTEIN 7.2 G/DL (6.4-8.2); eCRCL 34 ML/MIN; eGFR 47 ML/MIN
[2024-07-01 12:34] LABS: PRO BRAIN NATRIURETIC PEPTIDE 2057 PG/ML (0-450)
[2024-07-01] MEDS ORDERED: furosemide 10 MG/1 ML 10ml inj IV ONE (13:40)
[2024-07-01] MEDS ORDERED: furosemide 20 MG/2 ML vial IV ONE (13:45)
[2024-07-01] MEDS: ipratropium/albuterol 3ml nebule NEB PRN (13:51)
[2024-07-01 13:52] VITALS: PULSE 76; RESP 18; O2SAT 97
[2024-07-01] MEDS: methylPREDNISolone sod succ 125mg/2ml vial IV ONE (14:04)
[2024-07-01 14:05] VITALS: PULSE 70; RESP 18; O2SAT 100
[2024-07-01 17:45] VITALS: BP 160/88
[2024-07-01] MEDS: ipratropium/albuterol 3ml nebule NEB ONE (17:46)
[2024-07-01 17:49] VITALS: PULSE 74; RESP 20; O2SAT 96
[2024-07-01] MEDS ORDERED: PRED20TA PO (17:57)
[2024-07-01] MEDS ORDERED: ALBU18HF2 INH (17:57)
[2024-07-01] MEDS ORDERED: AMOX-115 PO (17:57)
[2024-07-01 17:59] VITALS: PULSE 77; RESP 24; O2SAT 99
== END 2024-07-01 18:25 | disposition home or self-care (01) ==
LOC: ER 11:24
DX: J40 Bronchitis, not specified as acute or chronic (principal); J18.9 Pneumonia, unspecified organism; I10 Essential (primary) hypertension; I25.10 Atherosclerotic heart disease of native coronary artery without angina pectoris; Z79.899 Other long term (current) drug therapy
CPT/HCPCS: 36415; 71045; 80053; 83880; 84484; 85025; 93005; 94640; 96374; 99285; J2919; Z7610; 94760

== ENCOUNTER 2024-10-02 15:48 | Inpatient (IN) | payer MEDICARE ==
[~2024-10-02] VITALS: Ht 165.1 cm; Wt 69.1 kg
[~2024-10-02 15:48] MED LIST changes: +ALBU18HF2 INH
[2024-10-02 16:10] LABS: BASOPHILS % (AUTO) 0.7 % (0-1); EOSINOPHILS # (AUTO) 0.1 X10'3 (0-0.9); EOSINOPHILS % (AUTO) 0.9 % (0-6); HEMATOCRIT 37.6 % (42.0-52.0); HEMOGLOBIN 12.3 g/dl (14.0-17.9); LYMPHOCYTES # (AUTO) 1.1 X10'3 (1.1-4.8); LYMPHOCYTES % (AUTO) 17.4 % (21-51); MEAN CORPUSCULAR HEMOGLOBIN 31.6 PG (27.0-31.0); MEAN CORPUSCULAR HGB CONC 32.8 g/dL (33.0-36.5); MEAN CORPUSCULAR VOLUME 96.2 FL (78-98); MEAN PLATELET VOLUME 7.4 FL (7.4-10.4); MONOCYTES # (AUTO) 0.7 X10'3 (0-0.9); MONOCYTES % (AUTO) 11.2 % (2-12); NEUTROPHILS # (AUTO) 4.6 X10'3 (1.8-7.7); NEUTROPHILS % (AUTO) 69.8 % (42-75); PLATELET COUNT 230 X10'3 (140-440); RED BLOOD COUNT 3.91 X10'6 (4.70-6.10); RED CELL DISTRIBUTION WIDTH 19.1 % (11.5-14.5); WHITE BLOOD COUNT 6.5 X10'3 (4.5-11.0)
[2024-10-02 16:26] LABS: ALANINE AMINOTRANSFERASE 42 U/L (12-78); ALBUMIN 3.5 G/DL (3.4-5.0); ALBUMIN/GLOBULIN RATIO 0.9 (1.1-1.5); ALKALINE PHOSPHATASE 102 IU/L (46-116); ANION GAP 7 (8-16); ASPARTATE AMINO TRANSFERASE 44 U/L (10-37); BLOOD UREA NITROGEN 23 MG/DL (7-18); BUN/CREATININE RATIO 13.7 (10.0-20.0); CALCIUM 8.3 MG/DL (8.5-10.1); CHLORIDE 103 MMOL/L (99-107); CREATININE 1.68 MG/DL (0.60-1.10); GLUCOSE 88 MG/DL (70-104); POTASSIUM 4.4 MMOL/L (3.5-5.1); SODIUM 139 MMOL/L (135-145); TOTAL CARBON DIOXIDE 28.7 MMOL/L (24-32); TOTAL PROTEIN 7.4 G/DL (6.4-8.2); eCRCL 29 ML/MIN; eGFR 39 ML/MIN
[2024-10-02 16:32] LABS: PRO BRAIN NATRIURETIC PEPTIDE 11213 PG/ML (0-450)
[2024-10-02 16:38] LABS: BILIRUBIN,TOTAL 2.3 MG/DL (0.1-1.0)
[2024-10-02 17:47] LABS: ANISOCYTOSIS 2+; PLATELET ESTIMATE NORMAL; POIKILOCYTOSIS 1+
[2024-10-02 17:48] LABS: ELLIPTOCYTES FEW
[2024-10-02] MEDS ORDERED: furosemide 10 MG/1 ML 10ml inj IV ONE (19:15)
[2024-10-02] MEDS: furosemide 40mg/4ml inj IV ONE (19:23)
[2024-10-02] MEDS ORDERED: potassium Cl 20 mEq SR tablet PO PRN ×2 (20:15)
[2024-10-02] MEDS ORDERED: magnesium hydroxide 30ml (MOM) UD suspension PO PRN (20:15)
[2024-10-02] MEDS ORDERED: ondansetron/PF 4mg/2ml inj IV PRN (20:15)
[2024-10-02] MEDS ORDERED: magnesium sulf-water 4G/100mL 100 ML IV PRN (20:15)
[2024-10-02] MEDS ORDERED: potassium Cl 40MEQ/1/2NS 520ml 520 ML IV PRN (20:15)
[2024-10-02] MEDS ORDERED: magnesium Cl slow-release 64mg tablet PO PRN (20:15)
[2024-10-02] MEDS ORDERED: magnesium sulf-water 2g/50mL 50 ML IV PRN (20:15)
[2024-10-02] MEDS ORDERED: mag hydrox/Alum hydrox/simeth 30ml oral suspension PO PRN (20:15)
[2024-10-02 20:51] LABS: THYROID STIMULATING HORMONE 8.24 ulU/ml (0.34-4.50)
[2024-10-02] MEDS ORDERED: FURO20TA4 PO (21:17)
[2024-10-02] MEDS ORDERED: LOSA25TA41 PO (21:17)
[2024-10-02 21:35] VITALS: BP 125/67; PULSE 70; RESP 15; TEMP 97.5; O2SAT 100
[2024-10-02 22:00] VITALS: BP 131/78; PULSE 81; RESP 22; TEMP 97.3; O2SAT 97
[2024-10-02 22:56] LABS: % IRON SATURATION 21 % (11-46); IRON 54 UG/DL (53-167); TOTAL IRON BINDING CAPACITY 260 UG/DL (259-388)
[2024-10-02 23:10] LABS: FREE T4 (FREE THYROXINE) 1.27 NG/DL (0.73-1.40)
[2024-10-02] MEDS: acetaminophen 325mg tablet PO PRN (23:14)
[2024-10-03] VITALS (10 sets, daily range): BP systolic 124–155; BP diastolic 73–102; PULSE 74–100; RESP 15–28; TEMP 97–97.8; O2SAT 93–99
[2024-10-03 06:48] LABS: BASOPHILS # (AUTO) 0.1 X10'3 (0-0.2); BASOPHILS % (AUTO) 0.9 % (0-1); EOSINOPHILS # (AUTO) 0.1 X10'3 (0-0.9); EOSINOPHILS % (AUTO) 1.7 % (0-6); HEMATOCRIT 37.6 % (42.0-52.0); HEMOGLOBIN 12.5 g/dl (14.0-17.9); LYMPHOCYTES # (AUTO) 1.4 X10'3 (1.1-4.8); LYMPHOCYTES % (AUTO) 18.4 % (21-51); MEAN CORPUSCULAR HEMOGLOBIN 31.7 PG (27.0-31.0); MEAN CORPUSCULAR HGB CONC 33.2 g/dL (33.0-36.5); MEAN CORPUSCULAR VOLUME 95.4 FL (78-98); MEAN PLATELET VOLUME 7.5 FL (7.4-10.4); MONOCYTES # (AUTO) 0.7 X10'3 (0-0.9); MONOCYTES % (AUTO) 9.1 % (2-12); NEUTROPHILS # (AUTO) 5.3 X10'3 (1.8-7.7); NEUTROPHILS % (AUTO) 69.9 % (42-75); PLATELET COUNT 233 X10'3 (140-440); RED BLOOD COUNT 3.94 X10'6 (4.70-6.10); WHITE BLOOD COUNT 7.6 X10'3 (4.5-11.0)
[2024-10-03 07:10] LABS: ALANINE AMINOTRANSFERASE 36 U/L (12-78); ALBUMIN 3.5 G/DL (3.4-5.0); ALBUMIN/GLOBULIN RATIO 0.9 (1.1-1.5); ALKALINE PHOSPHATASE 100 IU/L (46-116); ANION GAP 8 (8-16); ASPARTATE AMINO TRANSFERASE 42 U/L (10-37); BILIRUBIN,TOTAL 2.2 MG/DL (0.1-1.0); BLOOD UREA NITROGEN 26 MG/DL (7-18); BUN/CREATININE RATIO 15.1 (10.0-20.0); CALCIUM 8.4 MG/DL (8.5-10.1); CHLORIDE 103 MMOL/L (99-107); CHOLESTEROL 78 MG/DL (0-200); CREATININE 1.72 MG/DL (0.60-1.10); GLUCOSE 100 MG/DL (70-104); HDL CHOLESTEROL 39 MG/DL (35-60); LDL CHOLESTEROL 33 MG/DL (50-100); MAGNESIUM 1.9 MG/DL (1.5-2.4); POTASSIUM 4.1 MMOL/L (3.5-5.1); SODIUM 139 MMOL/L (135-145); TOTAL CARBON DIOXIDE 27.9 MMOL/L (24-32); TOTAL PROTEIN 7.6 G/DL (6.4-8.2); TRIGLYCERIDES 59 MG/DL (20-135); eCRCL 28 ML/MIN; eGFR 38 ML/MIN
[2024-10-03] MEDS: K and/or MAG REPLACEMENT MC SCH (08:00)
[2024-10-03] MEDS ORDERED: apixaban 5mg tablet PO SCH (08:00)
[2024-10-03] MEDS: furosemide 40mg/4ml inj IV SCH (08:59)
[2024-10-03] MEDS: docusate sod 100mg capsule PO SCH (09:07)
[2024-10-03] MEDS: levoTHYROXINE 25mcg tablet PO ONE (09:07)
[2024-10-03] MEDS: metoprolol succinate 25mg (24-HOUR) SR. Tablet PO SCH (09:08)
[2024-10-03] MEDS: apixaban 2.5mg tablet PO SCH (09:08)
[2024-10-03] MEDS: amiodarone 200mg tablet PO SCH (09:08)
[2024-10-03] MEDS: heparin, porcine 5000 units/ml vial SQ SCH (09:08)
[2024-10-03] MEDS: spironolactone 25 MG tablet PO ONE (15:55)
[2024-10-03] MEDS ORDERED: albuterol 2.5 MG/3 ML nebule NEB PRN (16:00)
[2024-10-03] MEDS: metoprolol succinate 25mg (24-HOUR) SR. Tablet PO ONE (17:18)
[2024-10-03] MEDS: spironolactone 50 MG tablet PO ONE (20:26)
[2024-10-03] MEDS: DOBUTamine-DoBUTrex 500mg/D5W 250 ML IV SCH (20:38)
[2024-10-04] VITALS (25 sets, daily range): BP systolic 103–157; BP diastolic 52–106; PULSE 64–83; RESP 10–24; TEMP 97.3–98.2; O2SAT 94–100
[2024-10-04 06:47] LABS: BASOPHILS # (AUTO) 0.1 X10'3 (0-0.2); BASOPHILS % (AUTO) 0.7 % (0-1); EOSINOPHILS # (AUTO) 0.1 X10'3 (0-0.9); HEMATOCRIT 35.9 % (42.0-52.0); HEMOGLOBIN 11.6 g/dl (14.0-17.9); LYMPHOCYTES # (AUTO) 1.1 X10'3 (1.1-4.8); LYMPHOCYTES % (AUTO) 15.8 % (21-51); MEAN CORPUSCULAR HEMOGLOBIN 31.2 PG (27.0-31.0); MEAN CORPUSCULAR HGB CONC 32.2 g/dL (33.0-36.5); MEAN CORPUSCULAR VOLUME 96.9 FL (78-98); MEAN PLATELET VOLUME 7.4 FL (7.4-10.4); MONOCYTES # (AUTO) 0.9 X10'3 (0-0.9); MONOCYTES % (AUTO) 12.3 % (2-12); NEUTROPHILS % (AUTO) 70.2 % (42-75); PLATELET COUNT 208 X10'3 (140-440); RED BLOOD COUNT 3.71 X10'6 (4.70-6.10); RED CELL DISTRIBUTION WIDTH 18.9 % (11.5-14.5); WHITE BLOOD COUNT 7.1 X10'3 (4.5-11.0)
[2024-10-04 07:00] LABS: ALANINE AMINOTRANSFERASE 33 U/L (12-78); ALBUMIN 3.2 G/DL (3.4-5.0); ALBUMIN/GLOBULIN RATIO 0.8 (1.1-1.5); ALKALINE PHOSPHATASE 92 IU/L (46-116); ANION GAP 4 (8-16); ASPARTATE AMINO TRANSFERASE 38 U/L (10-37); BLOOD UREA NITROGEN 31 MG/DL (7-18); BUN/CREATININE RATIO 18.9 (10.0-20.0); CALCIUM 8.4 MG/DL (8.5-10.1); CHLORIDE 103 MMOL/L (99-107); CREATININE 1.64 MG/DL (0.60-1.10); GLUCOSE 95 MG/DL (70-104); MAGNESIUM 1.9 MG/DL (1.5-2.4); POTASSIUM 4.2 MMOL/L (3.5-5.1); PRO BRAIN NATRIURETIC PEPTIDE 8868 PG/ML (0-450); SODIUM 141 MMOL/L (135-145); TOTAL CARBON DIOXIDE 33.8 MMOL/L (24-32); eCRCL 30 ML/MIN; eGFR 40 ML/MIN
[2024-10-04] MEDS: levoTHYROXINE 25mcg tablet PO SCH (07:00)
[2024-10-04] MEDS: DAPAGLIFLOZIN 10MG TABLET PO SCH (08:20)
[2024-10-04] MEDS: metoprolol succinate 25mg (24-HOUR) SR. Tablet PO SCH (08:21)
[2024-10-04] MEDS: spironolactone 50 MG tablet PO SCH (08:24)
[2024-10-04 11:02] LABS: LACTATE DEHYDROGENASE 252 U/L (85-227)
[2024-10-04] MEDS ORDERED: ondansetron 4mg rapidly disintigrating tab PO PRN (15:00)
[2024-10-04] MEDS ORDERED: levoTHYROXINE 25mcg tablet PO ONE (15:35)
[2024-10-04] MEDS ORDERED: furosemide 40mg/4ml inj IV ONE (17:05)
[2024-10-05] VITALS (12 sets, daily range): BP systolic 106–143; BP diastolic 56–87; PULSE 53–74; RESP 14–22; TEMP 96.7–98.1; O2SAT 94–100
[2024-10-05 06:40] LABS: BASOPHILS % (AUTO) 0.5 % (0-1); EOSINOPHILS # (AUTO) 0.1 X10'3 (0-0.9); EOSINOPHILS % (AUTO) 1.1 % (0-6); HEMATOCRIT 38.1 % (42.0-52.0); HEMOGLOBIN 12.7 g/dl (14.0-17.9); LYMPHOCYTES # (AUTO) 0.9 X10'3 (1.1-4.8); LYMPHOCYTES % (AUTO) 12.1 % (21-51); MEAN CORPUSCULAR HEMOGLOBIN 31.4 PG (27.0-31.0); MEAN CORPUSCULAR HGB CONC 33.3 g/dL (33.0-36.5); MEAN CORPUSCULAR VOLUME 94.5 FL (78-98); MEAN PLATELET VOLUME 7.3 FL (7.4-10.4); MONOCYTES # (AUTO) 0.7 X10'3 (0-0.9); MONOCYTES % (AUTO) 9.2 % (2-12); NEUTROPHILS # (AUTO) 5.5 X10'3 (1.8-7.7); NEUTROPHILS % (AUTO) 77.1 % (42-75); PLATELET COUNT 207 X10'3 (140-440); RED BLOOD COUNT 4.03 X10'6 (4.70-6.10); RED CELL DISTRIBUTION WIDTH 19.2 % (11.5-14.5); WHITE BLOOD COUNT 7.1 X10'3 (4.5-11.0)
[2024-10-05 06:56] LABS: ALANINE AMINOTRANSFERASE 28 U/L (12-78); ALBUMIN 3.4 G/DL (3.4-5.0); ALKALINE PHOSPHATASE 99 IU/L (46-116); ANION GAP 6 (8-16); ASPARTATE AMINO TRANSFERASE 44 U/L (10-37); BILIRUBIN,TOTAL 2.1 MG/DL (0.1-1.0); BLOOD UREA NITROGEN 29 MG/DL (7-18); BUN/CREATININE RATIO 19.7 (10.0-20.0); CALCIUM 8.4 MG/DL (8.5-10.1); CHLORIDE 101 MMOL/L (99-107); CREATININE 1.47 MG/DL (0.60-1.10); GLUCOSE 95 MG/DL (70-104); MAGNESIUM 1.9 MG/DL (1.5-2.4); SODIUM 141 MMOL/L (135-145); TOTAL CARBON DIOXIDE 34.4 MMOL/L (24-32); eCRCL 33 ML/MIN; eGFR 46 ML/MIN
[2024-10-05] MEDS ORDERED: levoTHYROXINE 25mcg tablet PO SCH (07:00)
[2024-10-05 07:32] LABS: ALBUMIN/GLOBULIN RATIO 0.9 (1.1-1.5); TOTAL PROTEIN 7.4 G/DL (6.4-8.2)
[2024-10-05] MEDS ORDERED: EMPAGLIFLOZIN 10 MG TABLET PO ONE (08:30)
[2024-10-05] MEDS: lisinopril 2.5mg tablet PO ONE (08:51)
[2024-10-05] MEDS: DOBUTamine-DoBUTrex 500mg/D5W 250 ML IV SCH (18:07)
[2024-10-06] MEDS ORDERED: benzonatate 100mg capsule PO PRN (01:20)
[2024-10-06 02:00] VITALS: BP 119/64; PULSE 73; RESP 15; TEMP 97.5; O2SAT 100
[2024-10-06 04:05] VITALS: PULSE 80; RESP 16; O2SAT 95
[2024-10-06 06:00] VITALS: BP 116/68; PULSE 65; RESP 15; TEMP 97.6; O2SAT 100
[2024-10-06 06:42] LABS: BASOPHILS % (AUTO) 0.4 % (0-1); EOSINOPHILS # (AUTO) 0.1 X10'3 (0-0.9); EOSINOPHILS % (AUTO) 1.1 % (0-6); HEMATOCRIT 39.8 % (42.0-52.0); LYMPHOCYTES % (AUTO) 11.8 % (21-51); MEAN CORPUSCULAR HEMOGLOBIN 31.5 PG (27.0-31.0); MEAN CORPUSCULAR HGB CONC 32.7 g/dL (33.0-36.5); MEAN CORPUSCULAR VOLUME 96.3 FL (78-98); MEAN PLATELET VOLUME 7.6 FL (7.4-10.4); MONOCYTES # (AUTO) 0.9 X10'3 (0-0.9); MONOCYTES % (AUTO) 11.4 % (2-12); NEUTROPHILS # (AUTO) 6.2 X10'3 (1.8-7.7); NEUTROPHILS % (AUTO) 75.3 % (42-75); PLATELET COUNT 218 X10'3 (140-440); RED BLOOD COUNT 4.13 X10'6 (4.70-6.10); RED CELL DISTRIBUTION WIDTH 18.4 % (11.5-14.5); WHITE BLOOD COUNT 8.2 X10'3 (4.5-11.0)
[2024-10-06] MEDS: lisinopril 2.5mg tablet PO SCH (07:14)
[2024-10-06 07:16] LABS: ALANINE AMINOTRANSFERASE 46 U/L (12-78); ALBUMIN 3.3 G/DL (3.4-5.0); ALBUMIN/GLOBULIN RATIO 0.9 (1.1-1.5); ALKALINE PHOSPHATASE 97 IU/L (46-116); ANION GAP 5 (8-16); ASPARTATE AMINO TRANSFERASE 60 U/L (10-37); BILIRUBIN,TOTAL 2.1 MG/DL (0.1-1.0); BLOOD UREA NITROGEN 28 MG/DL (7-18); BUN/CREATININE RATIO 17.5 (10.0-20.0); CALCIUM 8.6 MG/DL (8.5-10.1); CHLORIDE 99 MMOL/L (99-107); GLUCOSE 90 MG/DL (70-104); SODIUM 139 MMOL/L (135-145); TOTAL CARBON DIOXIDE 35.3 MMOL/L (24-32); TOTAL PROTEIN 6.8 G/DL (6.4-8.2); eCRCL 30 ML/MIN; eGFR 41 ML/MIN
[2024-10-06] MEDS ORDERED: LOSA25TA41 PO (07:43)
[2024-10-06] MEDS ORDERED: ASPI81TA52 PO (07:43)
[2024-10-06] MEDS ORDERED: METO-395 PO ×2 (07:43→12:23)
[2024-10-06] MEDS ORDERED: DAPA10TA PO ×2 (07:43→12:23)
[2024-10-06] MEDS ORDERED: LEVO25TA7 PO ×2 (07:43→12:23)
[2024-10-06] MEDS ORDERED: POTA-206 PO ×2 (07:43→12:23)
[2024-10-06] MEDS ORDERED: SPIR50TA5 PO (07:43)
[2024-10-06] MEDS ORDERED: FURO20TA4 PO (07:43)
[2024-10-06] MEDS ORDERED: AMI200T PO ×2 (07:43→12:23)
[2024-10-06 08:00] VITALS: RESP 15; O2SAT 100
[2024-10-06] MEDS ORDERED: EMPAGLIFLOZIN 10 MG TABLET PO SCH (08:00)
[2024-10-06 11:00] VITALS: BP 97/64; PULSE 71; RESP 14; TEMP 98.3; O2SAT 96
[2024-10-06] MEDS ORDERED: FURO-150 PO (12:23)
[2024-10-06] MEDS ORDERED: ASPI-1397 PO (12:23)
[2024-10-06] MEDS ORDERED: SPIR25TA PO (12:23)
[2024-10-06] MEDS ORDERED: LISI2.5T14 PO (12:23)
[2024-10-07] MEDS ORDERED: spironolactone 25 MG tablet PO SCH (08:30)
== END 2024-10-06 15:12 | disposition home or self-care (01) | DRG 291 ==
LOC: ER 15:49 → ED HOLD 20:18 → PCU 3S 21:37
PROVIDERS: ADMIT Internal Medicine Critical Care Medicine; ATTEND Nurse Practitioner Family
DX: I13.0 Hypertensive heart and chronic kidney disease with heart failure and stage 1 through stage 4 chronic kidney disease, or unspecified chronic kidney disease (principal); I50.23 Acute on chronic systolic (congestive) heart failure; N17.9 Acute kidney failure, unspecified; I25.10 Atherosclerotic heart disease of native coronary artery without angina pectoris; N18.30 Chronic kidney disease, stage 3 unspecified; G47.33 Obstructive sleep apnea (adult) (pediatric); D64.9 Anemia, unspecified; E03.9 Hypothyroidism, unspecified; E78.5 Hyperlipidemia, unspecified; I48.0 Paroxysmal atrial fibrillation; I27.29 Other secondary pulmonary hypertension; I25.5 Ischemic cardiomyopathy; Z79.01 Long term (current) use of anticoagulants; Z79.899 Other long term (current) drug therapy; Z90.49 Acquired absence of other specified parts of digestive tract; Z95.5 Presence of coronary angioplasty implant and graft; Z87.891 Personal history of nicotine dependence
CPT/HCPCS: 36415; 71045; 80053; 80061; 82728; 83540; 83550; 83615; 83735; 83880; 84439; 84443; 84484; 85008; 85025; 87081; 93005; 93306; 94760; 96374; 97161; 97530; 99285; A4615; G0378; J1250; J1644; J1940